=== PATIENT | female | born 1940 | race American Indian/Alaskan Native ===

== ENCOUNTER 2016-10-11 14:12 | Emergency (ER) | payer MEDICARE ==
[2016-10-11 14:51] VITALS: BP 100/50
--- NOTE | 2016-10-11 14:59 | Emergency Department Report ---
Chief Complaint: Urogenital-Female Stated Complaint: BLOOD IN URINE - HPI History of Present Illness: Patient with many PMH including DM2, dementia presents with daughter for eval of possible UTI. Daughter states she's noticed patient;s urines has a very strong odor, increasing confusion, change in personality. States was told her urine had blood and elevated white count at her PCP's this morning. Denies fever, chills, nausea, vomiting, chest pain. States symptoms have been going on for 2-3 weeks. - Exam Vital Signs: Vital Signs 10/11/16 14:45 Temperature 98.3 F Pulse Rate 63 Blood Pressure 100/50 O2 Sat by Pulse 100 Oximetry Physical Exam: General: Sitting quietly in wheelchair. NAD. Abdomen: Non tender. + BS. MSE screening note: Focused history and physical exam performed. Due to findings the following was ordered: ED Medical Decision Making - Medical Decision Making Patient to see MD in main ED. ED Disposition for MSE Condition: Stable
--- NOTE | 2016-10-13 14:58 | ED Elopement Review ---
ED Pt Elopement review - Results review Lab results: Laboratory Tests 10/11/16 16:08 Valproic Acid 54.1 - Call Back decision Pt Call Back Decision: No action required
== END 2016-10-11 15:28 | disposition left against medical advice (07) ==
LOC: ED 14:12
DX: R31.9 Hematuria, unspecified (principal); E11.9 Type 2 diabetes mellitus without complications; F03.90 Unspecified dementia, unspecified severity, without behavioral disturbance, psychotic disturbance, mood disturbance, and anxiety
CPT/HCPCS: 36415; 80164